=== PATIENT | male | born 1970 | race Caucasian/White ===

== ENCOUNTER 2021-12-16 01:33 | Observation (INO) ==
[2021-12-16] MEDS ORDERED: MIDAZOLAM HCL 1 MG/ML 2ML VIAL ONE (01:38)
[2021-12-16] MEDS ORDERED: niCARdipine HCL INJ 2.5 MG/ML 10 ML AMP ONE (01:38)
[2021-12-16] MEDS ORDERED: HEPARIN (PORCINE) 1000 UNIT/ML 10 ML (CATH LAB USE ONLY) ONE (01:38)
[2021-12-16] MEDS ORDERED: fentaNYL citrate 100 MCG/2 ML VIAL ONE (01:38)
[2021-12-16] MEDS ORDERED: ONDANSETRON INJ 2 MG/ML 2 ML VIAL ONE (01:38)
[2021-12-16] MEDS ORDERED: ONDANSETRON INJ 2 MG/ML 2 ML VIAL IV STA (01:39)
[2021-12-16] MEDS ORDERED: MoRPHine SULFATE 4 MG/ML 1 ML CARP\\VIAL IV STA (01:39)
[2021-12-16] MEDS ORDERED: MoRPHine SULFATE 4 MG/ML 1 ML CARP\\VIAL ONE (01:39)
[2021-12-16] MEDS ORDERED: NITROGLYCERIN/D5W 100MCG/ML 20ML SYR ONE (01:39)
--- NOTE | 2021-12-16 01:46 | Emergency Department Note ---
Impression & Plan ST elevation (STEMI) myocardial infarction ADMIT ED Provider Note HPI: The patient is a 51-year-old gentleman who presents the emergency department as a heart alert. I did receive a medical command phone call about this patient approximately 20 minutes prior to arrival, patient is a 51-year-old gentleman with no stated past medical history, developed substernal chest discomfort that has been ongoing for about the past 7 hours. States it is about a 5 out of 10 in severity. Located in the anterior portion of his chest and nonradiating. Patient states he does have some nausea. Patient states the pain was not going away therefore he did contact EMS for transport to the ED. EKG in the field shows evidence of anterior lateral MT with elevations in V2 through V5 as well as aVL. Heart alert was activated prior to the patient's arrival. On arrival to the ED the patient is hemodynamically stable, he is in no acute distress on arrival. He saturating well on room air. 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 Heart alert was activated prior to the patient's arrival. Case was discussed at the bedside with interventional cardiology, Dr. Torres, who is at the bedside at the time of the patient's arrival. Patient appears well on arrival, he is otherwise hemodynamically stable. Rates his pain a 5 out of 10. He was given morphine and Zofran, he was given full dose aspirin in the field as well as a sublingual nitroglycerin prior to arrival. Patient was transferred to the cardiac catheterization lab in stable condition for further management. * CRITICAL CARE TIME: ( 33 ) minutes -Management of ST elevation myocardial infarction, time spent at the bedside, interpretation of diagnostic studies including EKG, discussion with other physicians/interventional cardiology, arrangement of disposition/transfer to the cardiac catheterization lab for definitive care. Diagnosis: 1. ST elevation myocardial infarction 2. Chest pain Disposition: Admission Bebo Iraheta DO Emergency Medicine Past Med/Surg History Social History Smoking Status: Never smoker Feels Safe at Home: Yes Allergies Allergies Allergy/AdvReac Type Severity Reaction Status Date / Time No Known Allergies Allergy Verified 12/16/21 01:43 Home Meds Home Medications Medication Instructions Recorded Confirmed multivitamin 1 tab PO DAILY 12/16/21 12/16/21 Results & Data (ED) Vital Signs Vital Signs - 24 hr 12/16/21 01:34 12/16/21 01:43 12/16/21 01:46 Temperature Source Oral Pulse Rate 114 H Pulse Rate [Right Finger] 116 H Respiratory Rate 18 18 Respiratory Depth Normal Blood Pressure 136/88 Blood Pressure [Right Arm] 132/90 Blood Pressure Mean 104 Blood Pressure Mean [Right Arm] 104 Blood Pressure Position Lying Blood Pressure Position [Right Arm] Lying Pulse Oximetry 95 95 95 Oxygen Delivery Method Room Air Room Air Room Air Sepsis Recent Fever Within 48 Hours No Sepsis New/Unexplained Change in Mental Status No Sepsis Action Taken by Nursing No Action Required 12/16/21 01:49 Temperature Source Pulse Rate 117 H Pulse Rate [Right Finger] Respiratory Rate 18 Respiratory Depth Blood Pressure 130/92 Blood Pressure [Right Arm] Blood Pressure Mean Blood Pressure Mean [Right Arm] Blood Pressure Position Blood Pressure Position [Right Arm] Pulse Oximetry 97 Oxygen Delivery Method Room Air Sepsis Recent Fever Within 48 Hours Sepsis New/Unexplained Change in Mental Status Sepsis Action Taken by Nursing Laboratory Data Result diagrams: 12/16/21 01:44 12/16/21 01:44 Lab Results 12/16/21 12/16/21 Range/Units 01:40 01:44 WBC 9.79 (4.8-10.8) K/uL RBC 4.50 L (4.7-6.1) M/uL Hgb 13.9 L (14.0-18.0) g/dL Hct 41.2 L (42-52) % MCV 91.6 (80-100) fL MCH 30.9 (25-34) pg MCHC 33.7 (32-36) g/dL RDW Std Deviation 46.1 (36.4-46.3) fL RDW Coeff of Niurka 13.7 (11.5-14.5) % Plt Count 256 (130-400) K/uL MPV 9.9 (7.4-10.4) fL Immature Gran % (Auto) 0.1 % Neut % (Auto) 82.5 % Lymph % (Auto) 8.1 % [place] % (Auto) 9.2 % Eos % (Auto) 0.0 % Baso % (Auto) 0.1 % Neut # (Auto) 8.08 H (1.4-6.5) K/uL Lymph # (Auto) 0.79 L (1.2-3.4) K/uL [place] # (Auto) 0.90 H (0.11-0.59) K/uL Eos # (Auto) 0.00 (0-0.5) K/uL Baso # (Auto) 0.01 (0-0.2) K/uL Immature Gran # (Auto) 0.01 (0.00-0.02) K/uL SARS-CoV-2, RNA, NAAT POSITIVE A* (NEGATIVE) Administered Medications Discontinued Medications Morphine Sulfate (Morphine Sulfate 4 Mg/Ml 1 Ml Carp\Vial) Confirm Administered Dose 4 mg .ROUTE .STK-MED ONE Stop: 12/16/21 01:40 Last Admin: 12/16/21 01:40 Dose: 4 mg Documented by: [id number] Ondansetron HCl (Ondansetron Inj 2 Mg/Ml 2 Ml Vial) Confirm Administered Dose 4 mg .ROUTE .STK-MED ONE Stop: 12/16/21 01:39 Last Admin: 12/16/21 01:40 Dose: 4 mg Documented by: [id number] Discharge Plan Visit Data Chief Complaint: Heart Alert Stated Complaint: HEART ALERT ED Provider: Bebo Iraheta Discharge Problem: ST elevation (STEMI) myocardial infarction Discharge Instructions Interventions: ED Discharge Assessment Last Done: 12/16/21 01:49 Discharge Problem: ST elevation (STEMI) myocardial infarction Qualifiers: Involved coronary artery: unspecified coronary artery Qualified Code(s): I21.3 - ST elevation (STEMI) myocardial infarction of unspecified site
--- NOTE | 2021-12-16 01:47 | Pre Anesthesia Assessment ---
Date of Service December 16, 2021 Pre Sedation Assessment Vital Signs Pulse Pulse Resp BP BP Pulse Ox 12/16/21 01:43 116 H 18 132/90 95 12/16/21 01:34 114 H 18 136/88 95 Cardiovascular RRR, no murmur, no edema Respiratory normal respiratory effort, lungs clear to auscultation Pre-Sedation Airway Assessment Smoking Status: Never smoker Hx Sleep Apnea: No Hx Difficult Intubation: No Short, Thick Neck: No Thyromental Distance: > or= 3.5 Finger Breadths Oral Cavity: + WNL Mallampati Class: III Procedure Planning Contraindications for Sedation: none Current Medications Reviewed: Yes Notes The planned sedation has been discussed with the patient. Informed Consent was obtained. I have identified the patient, determined the appropriateness of sedation and have assessed the patient immediately prior to the procedure. All medicine(s) and interventions are by my order.
--- NOTE | 2021-12-16 01:52 | Cardiology Consultation ---
Date of Consultation December 16, 2021 Assessment & Plan (1) ST elevation (STEMI) myocardial infarction: Presentation consistent with Anterior STEMI and recommend proceeding with emergent cardiac catheterization and likely primary PCI. No apparent contraindications to procedure. Discussed risks, benefits, alternatives of procedure with patient and they are willing to proceed. Further recommendations pending findings of coronary angiography. History of Present Illness History of Present Illness 51-year-old man here with acute chest pain and ECG concerning for acute NE. Patient seen emergently in the ED after heart alert activated en route. No prior cardiac history. No active medical issues and on no medications. Chest pain began approximately 6hrs prior to arrival while at rest and has been constant since that time. Describes substernal pain with associated nausea. Denies similar symptoms in the past. Given 1 slntg, aspirin en route. Chest pain at time of arrival 04/06. Hemodynamically stable. EKG showed anterior ST elevations on prehospital ECG and again on arrival. 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 Denies any prior tobacco use. Denies significant alcohol. Allergies Allergy/AdvReac Type Severity Reaction Status Date / Time No Known Allergies Allergy Verified 12/16/21 01:43 Home Medications Medication Instructions Recorded Confirmed Type multivitamin 1 tab PO DAILY 12/16/21 12/16/21 History Patient History Social History Smoking Status: Never smoker Feels Safe at Home: Yes Review of Systems Review of Systems: Not obtained in setting of emergent situation Physical Exam Physical Exam: General: Comfortable HEENT: Sclerae anicteric, Mask in place Lungs: Clear to auscultation bilaterally Cardiac: Regular rate and rhythm, no murmurs. Vascular: 2+ radial Abdomen: Soft, nontender Extremities: Well perfused, no peripheral edema Neuro: Nonfocal Psych: Alert orient x3, normal affect and mood Results & Data ([facility]) Vital Signs (Past 12 Hours) Vital Signs Pulse Pulse Resp BP BP Pulse Ox 12/16/21 01:46 95 12/16/21 01:43 116 H 18 132/90 95 12/16/21 01:34 114 H 18 136/88 95 PG Care Time/CCT Total # of Minutes Spent Total Time Spent with Patient: Total time spent is greater than 50% in coordination of care (as documented) at patient's floor/unit and/or counseling patient: Coding Level of Care Code 70367 Inpt Consult Level [address] elevation (STEMI) myocardial infarction I21.3 Involved coronary artery: unspecified coronary artery (1) ST elevation (STEMI) myocardial infarction Involved coronary artery: unspecified coronary artery Qualified Code(s): I21.3 - ST elevation (STEMI) myocardial infarction of unspecified site
[2021-12-16 01:53] LABS: Basophils # (auto) 0.01 K/uL (0-0.2); Basophils % (auto) 0.1 %; Hematocrit (blood only) 41.2 % (42-52); Hemoglobin 13.9 g/dL (14.0-18.0); Immature Granulocytes # (auto) 0.01 K/uL (0.00-0.02); Immature Granulocytes % (auto) 0.1 %; Lymphocytes # (auto) 0.79 K/uL (1.2-3.4); Lymphocytes % (auto) 8.1 %; Mean Corpuscular Hemoglobin 30.9 pg (25-34); Mean Corpuscular Hgb Conc 33.7 g/dL (32-36); Mean Corpuscular Volume 91.6 fL (80-100); Mean Platelet Volume 9.9 fL (7.4-10.4); Monocytes % (auto) 9.2 %; Neutrophils # (auto) 8.08 K/uL (1.4-6.5); Neutrophils % (auto) 82.5 %; Platelet Count 256 K/uL (130-400); RDW Coefficient of Variation 13.7 % (11.5-14.5); RDW Standard Deviation 46.1 fL (36.4-46.3); White Blood Count 9.79 K/uL (4.8-10.8)
[2021-12-16] MEDS ORDERED: TICAGRELOR 90 MG TAB PO ONE (01:55)
[2021-12-16 02:03] LABS: Partial Thromboplastin Ratio 0.9; Partial Thromboplastin Time 23.7 Seconds (21.0-31.0); Prothrombin Time 10.5 Seconds (9.0-12.0)
[2021-12-16 02:18] LABS: Albumin Globulin Ratio 1.5 (0.9-2); Albumin Level 4.4 gm/dl (3.4-5.0); BUN Creatinine Ratio 15.2 (10-20); Bilirubin,Total 0.3 mg/dl (0.2-1.0); Calcium 9.1 mg/dl (8.5-10.1); Creatinine Clr Calc Pharmacy 92.4 ml/min; Est GFR (African American) 88.3 ml/min; Est GFR (Non-African American) 76.2 ml/min; Total Protein 7.4 gm/dl (6.0-8.3)
[2021-12-16 02:22] LABS: Troponin I 0.67 ng/ml (0-0.04)
[2021-12-16] MEDS ORDERED: EPTIFIBATIDE 2 MG/ML 10 ML VIAL (CATH LAB USE ONLY) IV ONE (02:28)
--- NOTE | 2021-12-16 03:03 | Post Anesthesia Assessment ---
Date of Service December 16, 2021 Post Sedation Assessment Vital Signs Pulse Pulse Resp BP BP Pulse Ox 12/16/21 01:49 117 H 18 130/92 97 12/16/21 01:46 95 12/16/21 01:43 116 H 18 132/90 95 12/16/21 01:34 114 H 18 136/88 95 Recovery Score Activity: Moves 4 extremities Respiration: Deep Breath/Cough Circulation: +/-20% PreAnes Value Consciousness: Fully Awake Oxygen Saturation: O2 needed for >90% Discharge Sedation Level of Care: Fast Track Phase II Post Sedation Plan On clinical assessment, the patient appears to have tolerated the sedation without complications. Patient is recovering as anticipated. Patient will continue to be monitored by nursing and may be discharged when sedation discharge criteria are met per below protocol. Upon Completions of procedure up to 15 minutes continue every 5 minute vital signs and the P.A.R. score; then discharge to a Phase I or Fast Track to Phase II per the following guidelines: * Discharge Patient to appropriate Phase II area if PAR is 8 or greater or return to pre- procedure baseline. The post - procedure orders will be as directed. * If PAR score is less than 8 or not return to pre-procedure baseline then patient will follow Phase I monitoring till PAR is reached for Phase II. The Phase I may be done in procedure room or may call to secure a Phase I area. * If naloxone or flumazenil are used for reversal, hold in Phase I for continued monitoring from when last reversal dose was given for a minimum of 60 minutes or longer pending the nurse and/or physician discretion of patient condition before discharge to Phase II. Please call the Sedation Physician to re-evaluate and complete post-note for discharge to Phase II area. Do NOT discharge from procedure sedation or Phase 1 until post- sedation evaluation note is complete by procedure /sedation MD Sedation Discharge Instructions to be given to the patient at discharge to home.
[2021-12-16] MEDS ORDERED: ACETAMINOPHEN 325 MG TAB PO PRN (03:08)
--- NOTE | 2021-12-16 03:08 | Cardiac Catheterization ---
[facility] Data: [facility] [employer] Cardiac Status Clinical evaluation leading to the procedure CAD Presenation: STEMI Anginal Classification: CCS IV Heart Failure: No Cardiogenic Shock within 24 Hours: No Cardiac Arrest within 24 Hours: No Imaging Studies Past 6 Months: No Stress Studies Past 6 Months: No Diagnostic Physicians Name: Albert Torres MD Status: Emergency Closure Device Percutaneous Entry Location: Radial Closure Device: Radial Band Recommendations: PCI without planned CABG PCI Indication: Immediate PCI for STEMI First Noted: First EKG Lesion Segment Name: Proximal LAD Culprit Artery: Yes Stenosis Prior to Rx (%): 100 Chronic Total Occlusion: No IVUS: No FFR: No Pre-Procedure MCKAYLA Flow: 0 Previously Treated Lesion: No Lesion Complexity: Non-High/Non-C Lesion Length (mm): 25 Thrombus Present: Yes Bifurcation Lesion: Yes Guidewire Across Lesion: Stenosis Post-Procedure (%): 0 Post-Procedure MCKAYLA Flow: 3 Devices(s) Deployed: Yes Yes Intraprocedure Events Significant Disection: No Perforation: No Cardiac Cath Procedure Full Procedure Date December 16, 2021 Pre-Procedure Diagnosis Pre-Procedure Diagnosis: STEMI AUC Score AUC Score: 9 Post-Procedure Diagnosis Post-Procedure Diagnosis: Severe CAD Procedure(s) Performed Procedure(s) Performed: Coronary Angiography, Left Heart Cath, PTCA and Drug Eluting Stent Electronic Gluing Machine Operator Albert Torres MD Customer Resolution Specialist(s) Jaren Estimated Blood Loss Estimated Blood Loss: 15 Medication(s) Medication(s): Fentanyl, Heparin, Integrilin, Lidocaine 1%, Nicardipine, Nitroglycerin and Versed Medication(s): Ticagrelor Summary of Findings Indication: STEMI/Heart Alert Access: 6 Fr right radial artery Catheters: EBU 3.5 guide, diagnostic JR4 Findings: LM -normal caliber, luminal irregularities LAD -acute 100% proximal occlusion. After flow reestablished 30% mid segment disease, distal vessel small with luminal regularities and tapers around apex. Small D1 with 80% ostial stenosis and heavy thrombus burden. Circumflex -medium caliber, 30% proximal stenosis. Large OM 2 without significant disease. Distal AV groove circumflex small without disease. RCA -dominant, medium caliber, high takeoff, 30% mid segment disease. Distal vessel/PDA/RPL without significant disease. LVEDP -26 -- PCI -- Antithrombotic therapy: Heparin, clopidogrel Procedure: Left main cannulated with EBU 3.5 guide Ratchet Setter 50 wire passed across lesion into distal vessel Proximal LAD lesion predilated with 2.5 compliant balloon After re-established flow in LAD, severe D1 ostial flow with mid occlusion and thrombus. Given IC Integrilin Whisper wire placed across D1 stenosis/occlusion Ostial/proximal D1 dilated with 2.0 balloon. Dilated proximal LAD lesion stented with 3.0 x 30 mm Hobbs FRANCISCO beginning at ostium. Stent post-dilated with 3.5 noncompliant balloon IC vasodilators administered for spasm Post procedure MCKAYLA 3 flow, stent well expanded with minimal residual stenosis. MCKAYLA 2-3 flow in small D1. No other apparent cardiac complications. Arterial Closure: TR Band Summary: 1. Anterior STEMI/100% occluded proximal LAD 2. Mild non-culprit coronary artery disease - 30% ostial/proximal circumflex stenosis 3. Elevated intracardiac filling pressure (LVEDP 26). 4. Successful PCI of ostial to mid LAD with single FRANCISCO (3.0 x 30 mm Hobbs; Post dilated with 3.5 NC). Recommendations: Admit to PCU for continued monitoring Loaded with Ticagrelor 180mg in laboratory chief Continue dual-antiplatelet therapy for at least 1 year. Trend troponins until peak, Check Echo Uptitrate beta-carrie/ALMA as BP allows High-dose statin Consult cardiac Rehab Hemodynamics Rest Ao:: 125/75/100 Final Ao: 102/74/84 LV: 116/26 Recommendations Recommendations: PCI without planned CABG Specimens Specimens: None Radiation Exposure (mGy) 2549 Contrast (mls) 100 Fluids (cc crystalloids) Fluids (cc crystalloids): 225 Drains Drains: none Anesthesia moderate 7061-1500 Procedural Complication(s) None Disposition PCU I attest to the content of the Intraoperative Record and any orders documented therein. Any exceptions are noted below. [facility] Card Cath Procedure Codes Cardiac Catheterization Procedure 1: Cardiovascular Cath Procedures: 00272 Coronaries and LHC (+/-LV) Moderate Sedation Procedure 1: Sedation/Anesthesia: 44731 Mod Sedation by the same physician;Init15 Min Child Age 5 & Up Procedure 2: Sedation/Anesthesia: 12252 Mod Sedation by the same physician; Ea [id number] Minutes Stenting Procedure 1: Cardiovascular Stent Procedures: 07718 Perc transluminal revascularization of acute sub/total occl, aMI PG Care Time/CCT Total # of Minutes Spent Total Time Spent with Patient: Total time spent is greater than 50% in coordination of care (as documented) at patient's floor/unit and/or counseling patient:
[2021-12-16] MEDS ORDERED: FUROSEMIDE INJ 20 MG/2 ML VIAL IV ONE (03:30)
--- NOTE | 2021-12-16 04:07 | History & Physical Report ---
Date of Service December 16, 2021 Assessment & Plan (1) ST elevation (STEMI) myocardial infarction: Plan: 51 y/o M w/ no PMHx who presented w/ anterior STEMI 100% occluded proximal LAD and is s/p DESx1. Stable. No obvious risk factors other than family hx of early [place] in mother (early 50s). Cardiac cath findings: 1. Anterior STEMI/100% occluded proximal LAD. 2. Mild non-culprit coronary artery disease- 30% ostial/proximal circumflex stenosis. 3. Elevated intracard iac filling pressure (LVEDP 26). 4. Successful PCI of ostial to mid LAD with single FRANCISCO (3.0 x 30 mm [place]; Post dilated with 3.5 NC). Per cardiology recs, DAPT x at least 1 year. Trend trop. Echo. BB and ALMA. High dose statin. Cardiac rehab. Currently, has lisinopril 5mg qam, metoprolol tartrate 12.5mg PO BID, Brilinta 90g PO BID, baby ASA, and atorvastatin 80mg PO qam ordered. Vitals reviewed; sinus tach. Follow clinically after medications above. (2) Hypoxia: Plan: Desaturated to 84 x1 prior to PCI. After PCI, saturated 90-93% on room air. Provided 2L while sleeping, saturating mid-upper 90s. Lower suspicion for hypoxia from covid. CXR w/o acute process. Consider undiagnosed JASON given habitus. Will reassess if requiring O2 later in the day. Remdesivir / IV Decadron not indicated at this time. Reconsider only if there is a new and persistent O2 requirement. Patient's CAD is a risk factor for more severe covid. (3) COVID: Plan: Asymptomatic. Onset unknown. Per HPI, coworker tested positive 1.5 weeks ago. Ordered CRP. (4) Hyperglycemia, unspecified: Plan: Checking A1c. Check BSG ACHS. If persistently elevated, add SSI. (5) Percutaneous transluminal coronary angioplasty status: Plan: - see above Plan: FEN: HH, DM2. No IV fluids. ppx: SCDs. Defer chemoppx. code: Full dispo: PCU Admission and Anticipated Discharge Date Admission Date: December 16, 2021 History of Present Illness Chief Complaint: STEMI Primary Care Provider: Jeronimo Childers DO. Patient states that his current PCP is through [facility] and that he has not seen Dr. Childers ([facility]) since 2016. 51 y/o M w/ no PMHx who presented via EMS as a heart alert for anterior STEMI on ecg. He was brought emergently to the [facility] and is s/p a single FRANCISCO for 100% occluded proximal LAD. He started having constant 5/10 intensity midsternal chest pressure "as if someone sat on his chest" since 6:30PM in the evening while eating dinner. He had mild associated nausea, diaphoresis, numbness of bilat arms and some radiation of the pain to his back. The pain stayed for several hours before he decided to call EMS. Only mild alleviating factor was laying down. After the PCI, patient's symptoms mostly resolved, just has mild chest discomfort. Denies hx of prior similar symptoms. Family hx pertinent for early [place] in mother (early 50s). His maternal grandmother had [place] in her early 60s. Patient denies hx of diabetes, asthma, or COPD. He has had [employer] i mmunizations x2. 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 Patient denies any covid symptoms. No dyspnea. Denies any hx of tobacco use. 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 Respiratory: Denies shortness of breath, cough Gastrointestinal: Denies abdominal pain, nausea, vomiting, constipation, diarrhea Genitourinary: Denies urinary symptoms including dysuria Musculoskeletal: Denies weakness, muscle aches/pain, joint aches/pain Neurological: Denies headache, focal weakness Physical Exam Physical Exam: General: Grossly A&O. NAD. Cooperative. HEENT: Atraumatic, normocephalic. EOMI Pulm: CTAB. -wheezes, -rales, -rhonchi. No respiratory distress. Cardiac: Mildly tachycardic rate, regular rhythm, -mrg. Abdominal: Nontender, nondistended, soft. Integ: Warm, dry, intact. TR bands appropriate. Neuro: Normal strength and sensation of extremities. Results & Data Results & Data ([facility]) Vital Signs (Past 12 Hours) Vital Signs Temp Pulse Pulse Resp BP BP Pulse Ox 12/16/21 03:30 98 H 23 144/100 H 90 12/16/21 03:27 37.1 C 100 H 19 128/81 93 12/16/21 03:21 99 H 23 89 L 12/16/21 01:50 113 H 15 12/16/21 01:49 117 H 18 130/92 97 12/16/21 01:46 95 12/16/21 01:45 108 H 21 132/90 84 L 12/16/21 01:43 116 H 18 132/90 95 12/16/21 01:40 113 H 23 94 12/16/21 01:39 114 H 24 94 12/16/21 01:34 114 H 18 136/88 95 Laboratory Results wbc 9.79. Hb 13.9. Na 135. Cr 1.12. BSG 200. trop 0.67. covid pos. 12/16/21 01:44 12/16/21 01:44 Cardiac Enzymes 12/16/21 Range/Units 01:44 AST 38 (13-39) U/L Troponin I 0.67 H* (0-0.04) ng/ml Coagulation 12/16/21 Range/Units 01:44 PT 10.5 (9.0-12.0) Seconds APTT 23.7 (21.0-31.0) Seconds CBC 12/16/21 Range/Units 01:44 WBC 9.79 (4.8-10.8) K/uL RBC 4.50 L (4.7-6.1) M/uL Hgb 13.9 L (14.0-18.0) g/dL Hct 41.2 L (42-52) % Plt Count 256 (130-400) K/uL Neut # (Auto) 8.08 H (1.4-6.5) K/uL Lymph # (Auto) 0.79 L (1.2-3.4) K/uL [place] # (Auto) 0.90 H (0.11-0.59) K/uL Eos # (Auto) 0.00 (0-0.5) K/uL Baso # (Auto) 0.01 (0-0.2) K/uL Comprehensive Metabolic Panel 12/16/21 Range/Units 01:44 Sodium 135 L (136-145) mmol/L Potassium 4.0 (3.5-5.1) mmol/L Chloride 104 (98-107) mmol/L Carbon Dioxide 24 (21-32) mmol/L BUN 17 (6-23) mg/dl Creatinine 1.12 (0.6-1.4) mg/dl Glucose 200 H (70-99(Fasting)) mg/dl Calcium 9.1 (8.5-10.1) mg/dl AST 38 (13-39) U/L ALT 33 (7-52) U/L Alkaline Phosphatase 72 (34-104) U/L Total Protein 7.4 (6.0-8.3) gm/dl Albumin 4.4 (3.4-5.0) gm/dl Intake and Output 12/15/21 12/15/21 12/16/21 14:59 22:59 06:59 Intake Total 0 / 0 Balance 0 / 0 Intake: Oral 0 / 0 Other: Weight 97.5 kg Weight Measurement Method Chair Scale Patient Weight 12/16/21 06:59 Weight 97.5 kg Diagnostic Findings cxr w/o acute findings per my interpretation ECG Additional Comments: 12/16/21 0138 ecg.Per my interpretation, sinus tach 112 w/ STEMI at V2-V5. Normal axis and intervals. 12/16/21 0345 ecg post PCI showing resolving ST elevations. Code Status & VTE Plan Code Status full VTE Prophylaxis Plan VTE Prophylaxis will be ordered: Yes Supervising Physician Co-Signing Physician Notes Attending addendum: I have physically seen this patient, have supervised the medical residents activities, and agree with the H&P unless as otherwise noted. Assessment and Plan: STEMI- Status post heart alert, taken emergency to cardiac catheterization 100 percent proximal LAD lesion. Status post FRANCISCO to LAD with good result Cardiac medications per Dr. Torres COVID-19 infection- Appears to be asymptomatic this point Follow closely, and ox propria medications as indicated Isolation remaining orders and notations as noted Resident Activity Tracking Resident Involvement: Resident Care Provided Care Provided: Adult Hospital Medicine (1) ST elevation (STEMI) myocardial infarction Involved coronary artery: unspecified coronary artery Qualified Code(s): I21.3 - ST elevation (STEMI) myocardial infarction of unspecified site
[2021-12-16 06:52] LABS: Hematocrit (blood only) 41.8 % (42-52); Hemoglobin 14.1 g/dL (14.0-18.0); Immature Granulocytes # (auto) 0.01 K/uL (0.00-0.02); Immature Granulocytes % (auto) 0.1 %; Lymphocytes # (auto) 0.58 K/uL (1.2-3.4); Mean Corpuscular Hemoglobin 30.6 pg (25-34); Mean Corpuscular Hgb Conc 33.7 g/dL (32-36); Mean Corpuscular Volume 90.7 fL (80-100); Mean Platelet Volume 10.1 fL (7.4-10.4); Monocytes # (auto) 1.01 K/uL (0.11-0.59); Monocytes % (auto) 8.7 %; Neutrophils # (auto) 9.98 K/uL (1.4-6.5); Neutrophils % (auto) 86.2 %; Platelet Count 267 K/uL (130-400); RDW Standard Deviation 46.3 fL (36.4-46.3); Red Blood Count 4.61 M/uL (4.7-6.1); White Blood Count 11.58 K/uL (4.8-10.8)
[2021-12-16 07:21] LABS: BUN Creatinine Ratio 17.6 (10-20); Calcium 9.3 mg/dl (8.5-10.1); Chol HDL Ratio 3.6; Creatinine Clr Calc Pharmacy 113.7 ml/min; Est GFR (African American) 113.5 ml/min; Est GFR (Non-African American) 97.9 ml/min
--- NOTE | 2021-12-16 07:53 | XRay Report ---
SINGLE VIEW CHEST CLINICAL HISTORY: Atypical chest pain. FINDINGS: An AP, portable, upright chest radiograph is obtained. No prior studies are available for c omparison at the time of dictation. The examination is degraded by portable technique and apical lord otic positioning. The cardiomediastinal silhouette is unremarkable. The lungs and pleural spaces are clear. No pneumothorax is seen. The bony thorax is grossly intact. IMPRESSION: No acute cardiopulmonary abnormality. ACT 112: Negative or not required by law. Electronically signed by: Umer Chowdhury M.D. 12/16/2021 7:52 AM
[2021-12-16 08:02] LABS: Estimated Average Glucose 128 mg/dl; Hemoglobin A1C 6.1 % (4.5-5.6)
[2021-12-16] MEDS: ATORVASTATIN 40 MG TAB PO SCH (08:49)
[2021-12-16] MEDS: ASPIRIN 81 MG ECTAB PO SCH (08:49)
[2021-12-16] MEDS: lisinopril 5 MG TAB PO SCH (08:50)
[2021-12-16] MEDS ORDERED: METOPROLOL TARTRATE 25 MG TAB PO SCH (09:00)
--- NOTE | 2021-12-16 10:04 | History & Physical Bridge Note ---
Date of Service December 16, 2021 History & Physical Bridge Note I have examined the patient, reviewed the History & Physical and in the interval since the performance of the History & Physical I have noted the following changes of clinical significance: patient doing well, no chest pain, no dyspnea, no nausea, no diaphoresis ate most of his breakfast vitals stable he is on Brilinta, aspirin, Lipitor, metoprolol, lisinopril told him we will watch him through tomorrow, follow up echo results I will speak with cardiology tomorrow
--- NOTE | 2021-12-16 10:50 | XCELERA ---
[id number] \\[id number]
--- NOTE | 2021-12-16 12:28 | Electrocardiogram Report ---
Test Reason : Blood Pressure : / mmHG Vent. Rate : 112 BPM Atrial Rate : 112 BPM P-R Int : 174 ms QRS Dur : 084 ms QT Int : 338 ms P-R-T Axes : 072 047 -10 degrees QTc Int : 461 ms Sinus tachycardia Low voltage QRS ACUTE AK / STEMI ST elevation consider anterior injury or acute infarct Abnormal ECG When compared with ECG of 30-JUL-1998 00:21, QRS voltage has decreased Anterior infarct is now Present ST now depressed in Inferior leads ST elevation now present in Anterior leads Confirmed by Lorenzo Rodriguez ([id number]) on 12/16/2021 12:27:52 PM Referred By: REFERRED SELF Confirmed By:Lorenzo Rodriguez
--- NOTE | 2021-12-16 12:32 | Electrocardiogram Report ---
Test Reason : Blood Pressure : / mmHG Vent. Rate : 099 BPM Atrial Rate : 099 BPM P-R Int : 176 ms QRS Dur : 098 ms QT Int : 342 ms P-R-T Axes : 063 059 056 degrees QTc Int : 438 ms Normal sinus rhythm Low voltage QRS Anterior infarct Abnormal ECG When compared with ECG of 16-DEC-2021 01:38, Serial changes of evolving Anterior infarct Present Confirmed by Lorenzo Rodriguez ([id number]) on 12/16/2021 12:32:19 PM Referred By: REFERRED SELF Confirmed By:Lorenzo Rodriguez
--- NOTE | 2021-12-16 12:38 | Cardiology Progress Note ---
Date of Service December 16, 2021 Assessment & Plan (1) ST elevation (STEMI) myocardial infarction: Plan: 2. Ischemic cardiomyopathyEF around 35% 3. Dyslipidemia 4. Mild nonculprit CAD 5. COVID-19 infection Patient chest pain-free. Hemodynamically and electrically stable. No signs of heart failure on exam. No apparent access site complications. Continue DAPT with ASA, ticagrelor Increase metoprolol to 25 mg 3 times daily Continue current lisinopril Add spironolactone 12.5 mg daily LV function borderline. We will repeat limited echo in a.m. to evaluate function, rule out LV thrombus. Do not expect need for LifeVest. Continue to monitor on telemetry today. Tentatively plan on discharge tomorrow. Admission and Anticipated Discharge Date Admission Date: December 16, 2021 Subjective Feeling well currently. Presenting chest pain resolved. Minimal left sided chest pain worse with changes in position. Denies shortness of breath. No other new concerns. Telemetry reviewedsinus tachycardia, no events Review of Systems Review of Systems: All systems reviewed & are unremarkable except as noted in HPI & below Physical Exam Physical Exam: General: Comfortable HEENT: Sclerae anicteric Lungs: Clear to auscultation bilaterally Cardiac: Regular rate and rhythm, no murmurs. Vascular: Right radial artery access site with no ecchymosis, hematoma. Distal pulse and sensation intact. Abdomen: Soft, nontender Extremities: Well perfused, no peripheral edema Neuro: Nonfocal Psych: Alert orient x3, normal affect and mood Results & Data ([facility]) Vital Signs (Past 12 Hours) Vital Signs Temp Pulse Pulse Resp BP BP BP 12/16/21 11:14 98.8 F 106 H 19 132/97 12/16/21 08:53 106 H 18 130/89 12/16/21 07:50 98.6 F 107 H 19 122/88 12/16/21 06:30 100 H 123/83 12/16/21 06:20 103 H 12/16/21 06:10 105 H 12/16/21 06:00 103 H 130/93 12/16/21 05:50 101 H 12/16/21 05:40 104 H 12/16/21 05:31 98 H 12/16/21 05:30 110 H 119/93 12/16/21 05:27 108 H 129/93 12/16/21 05:20 109 H 12/16/21 05:10 102 H 17 12/16/21 05:00 102 H 20 153/116 H 12/16/21 04:50 103 H 20 12/16/21 04:40 106 H 16 12/16/21 04:30 99 H 15 148/102 H 12/16/21 04:20 106 H 19 12/16/21 04:15 99 H 16 137/98 12/16/21 04:10 101 H 19 12/16/21 04:00 100 H 15 142/101 H 12/16/21 03:50 98 H 14 12/16/21 03:45 99 H 16 143/95 H 12/16/21 03:40 99 H 16 12/16/21 03:30 98 H 23 144/100 H 12/16/21 03:27 98.8 F 100 H 19 128/81 12/16/21 03:21 99 H 23 12/16/21 01:50 113 H 15 12/16/21 01:49 117 H 18 130/92 12/16/21 01:46 12/16/21 01:45 108 H 21 132/90 12/16/21 01:43 116 H 18 132/90 12/16/21 01:40 113 H 23 12/16/21 01:39 114 H 24 12/16/21 01:34 114 H 18 136/88 Pulse Ox 12/16/21 11:14 95 12/16/21 08:53 94 12/16/21 07:50 94 12/16/21 06:30 94 12/16/21 06:20 93 12/16/21 06:10 93 12/16/21 06:00 95 12/16/21 05:50 94 12/16/21 05:40 93 12/16/21 05:31 12/16/21 05:30 95 12/16/21 05:27 96 12/16/21 05:20 94 12/16/21 05:10 95 12/16/21 05:00 98 12/16/21 04:50 98 12/16/21 04:40 95 12/16/21 04:30 97 12/16/21 04:20 98 12/16/21 04:15 96 12/16/21 04:10 96 12/16/21 04:00 98 12/16/21 03:50 96 12/16/21 03:45 95 12/16/21 03:40 96 12/16/21 03:30 90 12/16/21 03:27 93 12/16/21 03:21 89 L 12/16/21 01:50 12/16/21 01:49 97 12/16/21 01:46 95 12/16/21 01:45 84 L 12/16/21 01:43 95 12/16/21 01:40 94 12/16/21 01:39 94 12/16/21 01:34 95 PG Care Time/CCT Total # of Minutes Spent Total Time Spent with Patient: Total time spent is greater than 50% in coordination of care (as documented) at patient's floor/unit and/or counseling patient: Coding Level of Care Code None Diagnoses ST elevation (STEMI) myocardial infarction I21.3 Involved coronary artery: unspecified coronary artery (1) ST elevation (STEMI) myocardial infarction Involved coronary artery: unspecified coronary artery Qualified Code(s): I21.3 - ST elevation (STEMI) myocardial infarction of unspecified site
[2021-12-16] MEDS: METOPROLOL TARTRATE 25 MG TAB PO SCH ×2 (13:57→20:23)
[2021-12-16] MEDS: SPIRONOLACTONE 12.5 MG TAB PO SCH (13:57)
[2021-12-16] MEDS: TICAGRELOR 90 MG TAB PO SCH (20:23)
--- NOTE | 2021-12-16 20:53 | Billing Data ---
Date of Service December 16, 2021 Coding Level of Care Code INT OBSERVATION CARE 70M LVL 3
[2021-12-17 07:13] LABS: BUN Creatinine Ratio 16.7 (10-20); Calcium 9.1 mg/dl (8.5-10.1); Creatinine Clr Calc Pharmacy 101.5 ml/min; Est GFR (African American) 98.9 ml/min; Est GFR (Non-African American) 85.3 ml/min; Potassium 4.1 mmol/L (3.5-5.1)
[2021-12-17] MEDS: ASPIRIN 81 MG ECTAB PO SCH (08:43)
[2021-12-17] MEDS: SPIRONOLACTONE 12.5 MG TAB PO SCH (08:43)
[2021-12-17] MEDS: ATORVASTATIN 40 MG TAB PO SCH (08:44)
[2021-12-17] MEDS: lisinopril 5 MG TAB PO SCH (08:44)
[2021-12-17] MEDS: METOPROLOL TARTRATE 25 MG TAB PO SCH (08:44)
[2021-12-17] MEDS: TICAGRELOR 90 MG TAB PO SCH (08:44)
--- NOTE | 2021-12-17 09:40 | XCELERA ---
[id number] \\[id number]
[2021-12-17] MEDS ORDERED: METOPROLOL TARTRATE 25 MG TAB PO SCH (10:00)
--- NOTE | 2021-12-17 10:24 | Discharge Summary ---
Date of Service December 17, 2021 Admission HPI Per Admitting Provider 51 y/o M w/ no PMHx who presented via EMS as a heart alert for anterior STEMI on ecg. 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 He started having constant 5/10 intensity midsternal chest pressure "as if someone sat on his chest" since 6:30PM in the evening while eating dinner. He had mild associated nausea, diaphoresis, numbness of bilat arms and some radiation of the pain to his back. The pain stayed for several hours before he decided to call EMS. Only mild alleviating factor was laying down. After the PCI, patient's symptoms mostly resolved, just has mild chest discomfort. Denies hx of prior similar symptoms. Family hx pertinent for early [place] in mother (early 50s). His maternal grandmother had [place] in her early 60s. Patient denies hx of diabetes, asthma, or COPD. He has had [employer] immunizations x2. 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 Patient denies any covid symptoms. No dyspnea. Denies any hx of tobacco use. Principal Diagnosis STEMI Systolic dysfunction, EF 35-40% Discharge Exam General: well developed, well nourished, no acute distress, comfortable Neck: supple, trachea midline, normal thyroid Lungs: clear to auscultation bilaterally, normal respiratory effort, no accessory muscle use, no distress Heart: regular S1 and S2, no murmur, peripheral pulses normal, capillary refill normal, no edema Abdomen: soft, NT, ND, + BS, no hepatomegaly, normal to percussion Extremities: normal in appearance, no cyanosis, no petechiae, strength is 5/5 bilaterally Neuro: awake, cooperative, moves all extremities, no focal motor deficits, CN II-XII intact, sensation in extremities intact, normal speech Skin: warm, dry, no rash, normal turgor Psych: Awake, alert oriented x 3, euthymic affect Discharge Data Allergies Allergy/AdvReac Type Severity Reaction Status Date / Time No Known Allergies Allergy Verified 12/16/21 01:43 Consultations 12/16/21 03:11 Consult Cardiac Rehabilitation Routine Procedures Performed Operation Date: 12/16/21 02:00 Actual Procedures p Aspiration/PCI w/FRANCISCO for Stemi - Josep Torres MD s Cineradiography w/Routine Exam - Josep Torres MD s Cath, Left with Cors and Vent - Josep Torres MD s POBA SGL Vessel - Josep Torres MD Ordered Studies 12/16/21 01:43 CL Cath Imgs for PACS use only Stat Hospital Course (1) ST elevation (STEMI) myocardial infarction: 51 y/o M w/ no PMHx who presented w/ anterior STEMI 100% occluded proximal LAD and is s/p Drug eluting stent to LAD no chest pain since admission, vitals stable, no dyspnea, no nausea, no diaphoresis Echo: EF was initially 25-30% with akinesis of apex and hypokinesis of septal wall repeat Echo 12/17: EF is 35-40%, still with akinesis of apex plan: Brilinta 90mg BID and aspirin 81mg daily, continue DAPT for at least a year, told to not stop taking anything unless instructed to do so by cardiology Lipitor 80mg daily Toprol 25mg daily and lisinopril 2.5mg daily Nitro SL as needed for chest pain/pressure no exertion for at least 2 weeks, until cleared by cardiology will follow up with Dr. Torres in 1-2 weeks excuse for work provided (2) Hypoxia: momentary, around time of admission and left heart cath stable on room air ever since, no dyspnea, no cough (3) COVID: Asymptomatic. Onset unknown. Per HPI, coworker tested positive 1.5 weeks ago no need for isolation on discharge (4) Hyperglycemia, unspecified: follow up with PCP (5) Percutaneous transluminal coronary angioplasty status: - see above Total Time Total Time Spent Total Time Spent (In Minutes): 32 minutes Discharge Plan Discharge Items Patient Disposition: Home - Self-Care Reason For Visit: STEMI Discharge Diagnosis: ST elevation myocardial infarction Condition on Discharge: Good Goals: take medication as prescribed follow up closely with cardiology Activity: Per Instructions section Lifting: Wait until after follow-up appointment Bathing: No limitations Sexual Activity: Wait until after follow-up appointment Exercise/Sports: Wait until after follow-up appointment Driving/Machine Use: Resume 1 day after discharge Weightbearing: Full weightbearing Non-emergency contact: Primary Care Provider and Inbound Sales Consultant Call non-emergency contact if: you have any medication questions and your symptoms worsen Follow-up/Referrals: Josep Torres MD [Physician] - (one week) Jeronimo Childers DO [Primary Care Provider] - (one week) Diet: Heart Healthy Addtl Attending Provider Instructions: Medications: all medications are intended to keep stent open, prevent future heart attack, preserve heart function, important that you take them as prescribed - ASPIRIN: 81mg daily, can obtain over the counter, never stop taking - BRILINTA: 90mg twice a day, take for one year with aspirin to help keep stent open, do not stop taking unless told to do so by potato spotter - LIPITOR: 80mg daily, high dose statin to stabilize heart plaques and prevent future heart attack, lowers LDL (bad cholesterol) - METOPROLOL: 25mg once daily in morning, lowers heart rate and controls blood pressure, limits strain on heart, proven to lower morbidity and mortality after heart attack - LISINOPRIL: 2.5mg daily, helps prevent remodeling of heart muscle, improves outcomes after heart attack - NITRO: take under the tongue as needed for chest pain/pressure, can repeat in 15 minutes, if pain does not go away with second dose then call EMS to go to ED ST elevation myocardial infarction, systolic dysfunction with ejection fraction of 35-40% treated with emergent heart catheterization, drug eluting stent placed to LAD coronary artery take all of the above medications as prescribed if you have chest pain take nitro under the tongue, if pain does not go away then return to the ED do not ignore chest pain as in rare cases a clot can form in the stent, this is what aspirin and Brilinta should prevent Pending Studies at Discharge: No Stand-Alone Forms: My [facility], Smoking Cessation Medications and DC Order Prescriptions: New Brilinta 90 mg Tablet 90 mg PO BID 30 Days Qty: 60 RF: 3 atorvastatin 80 mg tablet 80 mg PO QAM 30 Days Qty: 30 RF: 3 aspirin 81 mg Tablet,Delayed Release (Dr/Ec) 81 mg PO QAM 30 Days Qty: 30 RF: 3 metoprolol succinate [Toprol XL] 25 mg tablet extended release 24 hr 25 mg PO DAILY Qty: 30 RF: 3 lisinopril 2.5 mg tablet 2.5 mg PO DAILY Qty: 30 RF: 3 nitroglycerin 0.4 mg tablet, sublingual 0.4 mg sublingual UD PRN (Reason: chest pain) Qty: 30 RF: 1 Continued multivitamin Tablet 1 tab PO DAILY RF: 0 Discharge Orders: Discharge Order (Routine); Ordered 12/17/21 Ordered By: Blas Li/Other Patient Handouts: Prediabetes, 5 Steps for Eating Healthier Admission Data Admit Date/Time: 12/16/21 03:14 Attending Provider: Blas Acosta Admit Provider: Josep Torres Primary Care Provider: Jeronimo Childers Coding Level of Care Code D/C DAY MANAGEMENT >[address] elevation (STEMI) myocardial infarction I21.3 Involved coronary artery: unspecified coronary artery Hypoxia R09.02 COVID U07.1 Hyperglycemia, unspecified R73.9 Percutaneous transluminal coronary angioplasty status Z98.61
[2021-12-17] MEDS ORDERED: METOPROLOL SUCC 25MG EXT REL TAB PO STA (10:26)
--- NOTE | 2021-12-17 23:12 | Cardiology Progress Note ---
Date of Service December 17, 2021 Assessment & Plan (1) ST elevation (STEMI) myocardial infarction: Plan: 2. Ischemic cardiomyopathyEF 35-40% 3. Dyslipidemia 4. Mild nonculprit CAD 5. COVID-19 infection Patient chest pain-free. Electrically stable. No heart failure symptoms. Repeat echo shows moderate LV dysfunction. No thrombus. Borderline BPs overnight, this AM. From a cardiac standpoint OK with discharge today. Continue DAPT with ASA, ticagrelor Home on Toprol XL 25mg daily, Lisinopril 2.5 mg daily Stop spironolactone 12.5 mg daily -- potentially add back as an outpatient With current LV function can defer LifeVest. Follow-up with me in 1 week. Admission and Anticipated Discharge Date Admission Date: December 16, 2021 Subjective Feeling well currently. no recurrent chest pain. Denies shortness of breath. No other new concerns. Telemetry reviewed no events Physical Exam Physical Exam: General: Comfortable HEENT: Sclerae anicteric Lungs: Clear to auscultation bilaterally Cardiac: Regular rate and rhythm, no murmurs. Vascular: Right radial artery access site with no ecchymosis, hematoma. Distal pulse and sensation intact. Abdomen: Soft, nontender Extremities: Well perfused, no peripheral edema Neuro: Nonfocal Psych: Alert orient x3, normal affect and mood Results & Data ([facility]) Vital Signs (Past 12 Hours) Vital Signs Temp Pulse Resp BP Pulse Ox 12/17/21 12:00 99.3 F 97 H 19 82/53 L 95 PG Care Time/CCT Total # of Minutes Spent Total Time Spent with Patient: Total time spent is greater than 50% in coordination of care (as documented) at patient's floor/unit and/or counseling patient: Coding Level of Care Code 78648 Subseq Hosp Care Lvl [address] elevation (STEMI) myocardial infarction I21.3 Involved coronary artery: unspecified coronary artery (1) ST elevation (STEMI) myocardial infarction Involved coronary artery: unspecified coronary artery Qualified Code(s): I21.3 - ST elevation (STEMI) myocardial infarction of unspecified site
== END 2021-12-17 13:23 | disposition home or self-care (01) | DRG 246 ==
LOC: ED 01:33 → CC 01:57 → INTOOBSV 03:14 → 2E 03:14 → SUATTDRO 03:14